=== PATIENT | male | born 1970 | race Caucasian/White ===

== ENCOUNTER → 2016-09-06 | Outpatient (REF) | payer BC ==
[~2016-09-06] MED LIST: MULTIVIT; No Historical Meds; TRIC145T19
== END ==
LOC: M SFHCLERA 13:59
PROVIDERS: ATTEND Nurse Practitioner Family
DX: J02.9 Acute pharyngitis, unspecified (principal)

== ENCOUNTER → 2017-03-24 | Outpatient (CLI) | payer BC | LOC: M LRY 11:18 | DX: R05 Cough (principal) ==

== ENCOUNTER → 2019-03-29 | Outpatient (REF) | payer BC ==
[2019-04-02 00:06] LABS: ANTINUCLEAR ANTIBODIES DIRECT Negative (Negative)
== END ==
LOC: M LAB REF 16:37
PROVIDERS: ATTEND Nurse Practitioner Adult Health
DX: I73.00 Raynaud's syndrome without gangrene (principal)

== ENCOUNTER → 2021-08-17 | Outpatient (REF) | payer BC | LOC: M LAB REF 06:42 | PROVIDERS: ATTEND Surgery | DX: D03.60 Melanoma in situ of unspecified upper limb, including shoulder (principal) ==